=== PATIENT | male | born 1980 | race American Indian/Alaskan Native ===

== ENCOUNTER 2022-02-05 13:43 | Emergency (ER) | payer BC, OTHER ==
[2022-02-05 14:55] LABS: Hematocrit 35.1 % (35.5-45.6); Hemoglobin 12.2 gm/dl (11.8-15.2); Mean Corpuscular HGB Conc 35 % (32-34); Platelet Count 324 K/mm3 (140-440); Red Blood Count 5.63 M/mm3 (3.65-5.03); Red Cell Distribution Width 17.4 % (13.2-15.2)
[2022-02-05 14:56] LABS: Mean Corpuscular Volume 62 fl (84-94)
[2022-02-05 15:14] LABS: BUN/Creatinine Ratio 14; Blood Urea Nitrogen 13 mg/dL (9-20); Calcium 9.2 mg/dL (8.4-10.2); Hemolysis Index 4
[2022-02-05 15:35] LABS: Total Cells Counted 100
[2022-02-05 15:36] LABS: Anisocytosis 1+; Platelet Estimate Consistent w Auto; Poikilocytosis 1+; Target Cells 2+
--- NOTE | 2022-02-06 01:54 | Emergency Department Report ---
ED General Adult HPI - General Chief complaint: Dizziness Stated complaint: DIZZINESS /SWEATING Time Seen by Provider: 02/06/22 01:07 Source: patient Mode of arrival: Ambulatory Limitations: No Limitations - History of Present Illness Severity scale (0 -10): 0 - Related Data Previous Rx's Medication Instructions Recorded Last Taken Type HYDROcodone/APAP 5-325 [[place] 1 each PO Q4H PRN #40 tablet 04/11/16 Unknown Rx 5-325 mg TAB] Prochlorperazine [Compazine] 10 mg PO Q6H PRN #30 tablet 04/11/16 Unknown Rx Allergies Allergy/AdvReac Type Severity Reaction Status Date / Time No Known Allergies Allergy Verified 04/07/16 03:09 ED Review of Systems ROS: Stated complaint: DIZZINESS /SWEATING Other details as noted in HPI ED Past Medical Hx - Past Medical History Previous Medical History?: Yes Hx Congestive Heart Failure: No Hx Diabetes: No Hx Psychiatric Treatment: Yes (PTSD) Hx Asthma: No Hx COPD: No Hx HIV: No Additional medical history: PTSD - Social History Smoking Status: Smoker, Current Status Unknown - Medications Home Medications: Home Medications Medication Instructions Recorded Confirmed Last Taken Type HYDROcodone/APAP 5-325 [[place] 1 each PO Q4H PRN #40 tablet 04/11/16 Unknown Rx 5-325 mg TAB] Prochlorperazine [Compazine] 10 mg PO Q6H PRN #30 tablet 04/11/16 Unknown Rx ED Physical Exam - General Limitations: No Limitations ED Course Vital Signs 02/05/22 13:47 Temperature 98.4 F Pulse Rate 53 L Respiratory 18 Rate Blood Pressure 106/78 [Left] O2 Sat by Pulse 100 Oximetry ED Medical Decision Making - Lab Data Result diagrams: 02/05/22 14:07 02/05/22 14:07 Critical care attestation.: If time is entered above; I have spent that time in minutes in the direct care of this critically ill patient, excluding procedure time. ED Disposition Clinical Impression: Dizziness Disposition: 01 HOME / SELF CARE / HOMELESS Is pt being admited?: No Condition: Stable Instructions: Dizziness, Dizziness, Isux-da-Pdod Referrals: AMADOU RAMOS MD [Primary Care Provider] - 3-5 Days
[2022-02-06 02:08] VITALS: BP 116/73
--- NOTE | 2022-02-07 10:21 | Electrocardiograph Report ---
[facility] Test Date: 2022-02-05 Test Time: 13:53:14 Pat Name: KENA COHEN Department: Room: Gender: M [employer]: [employer] : 1980 Requested By: ED DOC Order Number: [id number] Reading MD: Rayray Interiano Measurements Intervals [place] Rate: 49 P: 5 DE: 157 QRS: 77 QRSD: 91 T: 46 QT: 441 QTc: 397 Interpretive Statements Sinus bradycardia No previous ECG available for comparison Electronically Signed On 02-07-2022 10:20:40 EDT by Rayray Interiano
== END 2022-02-06 02:09 | disposition home or self-care (01) ==
LOC: ED 13:43
DX: R42 Dizziness and giddiness (principal)
CPT/HCPCS: 36415; 80048; 84484; 85007; 85025; 93005; 99283